=== PATIENT | female | born 2000 ===

== ENCOUNTER 2020-10-25 19:26 | Emergency (ER) | payer SELFPAY ==
[~2020-10-25] VITALS: Ht 172.7 cm; Wt 102.4 kg
[2020-10-25 19:30] VITALS: BP 145/82
--- NOTE | 2020-10-25 20:34 | NUR ---
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 WAS PITTED IN TRIAGE PRIOR TO BEING ROOMED. PT AND FAMILY DID NOT WANT TO STAY DESPITE RECOMMENDATIONS NOT TO LEAVE WITHOUT BEING FULLY DAIGNOSED.
== END 2020-10-25 20:37 | disposition left against medical advice (07) ==
LOC: ED 19:36
DX: R10.9 Unspecified abdominal pain (principal); Z53.21 Procedure and treatment not carried out due to patient leaving prior to being seen by health care provider
CPT/HCPCS: 96361